=== PATIENT | female | born 1995 | race African-American/Black ===

== ENCOUNTER 2024-12-30 14:41 | Inpatient (IN) | payer MEDICAID, OTHER, SELFPAY ==
[2024-12-30 15:20] VITALS: BMI 29.9
[2024-12-30] MEDS ORDERED: Bicitra 30 ML UDCUP PO PRN (15:59)
[2024-12-30] MEDS ORDERED: Carboprost 250 MCG/ML AMP IM PRN (16:15)
[2024-12-30] MEDS ORDERED: Diphenoxylate HCl/Atropine Tablet PO PRN ×2 (16:15)
[2024-12-30] MEDS ORDERED: Tranexamic Acid 1,000 MG/10 ML VIAL IVP PRN (16:15)
[2024-12-30] MEDS ORDERED: Oxytocin 30 units/NS 500 ML 500 ML IV SCH (16:15)
[2024-12-30] MEDS ORDERED: Ondansetron PF 4 MG/2 ML Vial IVP PRN ×2 (16:15→18:27)
[2024-12-30] MEDS: Famotidine/PF 20 mg/2ml Vial SLOW IVP PRN (16:34)
[2024-12-30 16:47] LABS: #Basophils Less than 0.03 10x3/uL (0.0-0.2); #Eosinophils 0.03 10x3/uL (0.0-0.5); #Monocytes 0.58 10x3/uL (0.0-1.1); #Neutrophils 3.44 10x3/uL (1.5-8.4); %Basophils 0.2 % (0.0-2.0); %Eosinophils 0.5 % (0.0-6.0); %Lymphocytes 34.8 % (18.0-47.0); %Monocytes 9.3 % (0.0-10.0); %Neutrophils 54.9 % (40.0-75.0); Hematocrit 34.3 % (34.9-44.5); Hemoglobin 11.1 g/dL (12.0-15.5); Mean Corpuscular Hemoglobin 25.8 pg (27.0-33.0); Mean Corpuscular Volume 79.6 fL (81.6-98.3); Platelet Count 276 10x3/uL (150-450); Red Blood Cell (RBC) Count 4.31 10x6/uL (3.90-5.03); White Blood Cell (WBC) Count 6.26 10x3/uL (3.5-10.5)
[2024-12-30 16:52] LABS: ALT (SGPT) 19 U/L (Less than 34); AST (SGOT) 44 U/L (11-34); Albumin 3.3 g/dL (3.1-4.5); Alkaline Phosphatase 112 U/L (40-110); Anion Gap 15 mmol/L (10-20); BUN (Urea Nitrogen) 8 mg/dL (7.0-18.7); Bilirubin, Total 0.2 mg/dL (0.3-1.2); Calc. Creatinine Clearance 166 mL/min (70-130); Calcium 9.5 mg/dL (7.8-10.44); Carbon Dioxide 20 mmol/L (22-29); Chloride 104 mmol/L (98-107); Globulin 3.8 g/dL (2.4-3.5); Glucose 242 mg/dL (70-105); Potassium 4.9 mmol/L (3.5-5.1); Sodium 134 mmol/L (136-145)
[2024-12-30 17:11] LABS: Syphilis Antibody Index 0.07 S/CO (<1.00 Non-Reactive)
[2024-12-30 17:13] LABS: Hep B Surf Ag - L&D Non-Reactive S/CO (NonReactive)
[2024-12-30 17:16] LABS: Protein, Urine Random Quant Less than 10 mg/dL (1-14)
[2024-12-30] MEDS ORDERED: Bisacodyl 10 MG SUPP PR PRN (17:35)
[2024-12-30] MEDS ORDERED: diphenhydrAMINE 25 MG CAP PO PRN (17:35)
[2024-12-30] MEDS ORDERED: HYDROcodone/Acetaminophen 5/325 mg Tablet PO PRN (17:35)
[2024-12-30] MEDS ORDERED: hydrALAZINE 20 MG/ML VIAL SLOW IVP PRN (17:35)
[2024-12-30] MEDS ORDERED: Simethicone Chewable 80 MG TAB PO PRN (17:35)
[2024-12-30] MEDS ORDERED: Lanolin Ointment 7 GM TUBE TOP PRN (17:35)
[2024-12-30 17:45] LABS: Analyzer IN Cardio CS NICU; Critical Notified By: Udy, RRT; Critical Notified Whom: NUR.SM17; RapidComm Collect By NUR.SM17
[2024-12-30 17:46] LABS: Analyzer IN Cardio CS NICU; Critical Notified Whom: NUR.SM17; RapidComm Collect By NUR.SM17; pH (Cord, venous) 7.367 (7.250-7.350)
[2024-12-30] MEDS ORDERED: Meperidine HCl/PF 25 MG (1 mL) VIAL SLOW IVP PRN (18:27)
[2024-12-30] MEDS ORDERED: diphenhydrAMINE 50 MG/ML VIAL IVP PRN (18:27)
[2024-12-30] MEDS ORDERED: Communication Order-Pharmacy FS SCH (18:30)
[2024-12-30] MEDS ORDERED: Calcium Gluc 4.6 MEQ/10 ML (100 MG/ML) SLOW IVP PRN (18:41)
[2024-12-30] MEDS: hydrALAZINE 20 MG/ML VIAL SLOW IVP PRN ×2 (19:05→21:33)
[2024-12-30 19:11] LABS: #Basophils Less than 0.03 10x3/uL (0.0-0.2); #Eosinophils 0.03 10x3/uL (0.0-0.5); #Monocytes 0.23 10x3/uL (0.0-1.1); #Neutrophils 5.51 10x3/uL (1.5-8.4); %Basophils 0.1 % (0.0-2.0); %Eosinophils 0.4 % (0.0-6.0); %Lymphocytes 24.2 % (18.0-47.0); %Monocytes 3.0 % (0.0-10.0); %Neutrophils 71.9 % (40.0-75.0); Hematocrit 35.7 % (34.9-44.5); Hemoglobin 11.6 g/dL (12.0-15.5); Mean Corpuscular Hemoglobin 25.5 pg (27.0-33.0); Mean Corpuscular Volume 78.5 fL (81.6-98.3); Platelet Count 267 10x3/uL (150-450); Red Blood Cell (RBC) Count 4.55 10x6/uL (3.90-5.03); White Blood Cell (WBC) Count 7.66 10x3/uL (3.5-10.5)
[2024-12-30 19:44] LABS: ALT (SGPT) 19 U/L (Less than 34); AST (SGOT) 32 U/L (11-34); Albumin 3.2 g/dL (3.1-4.5); Alkaline Phosphatase 116 U/L (40-110); Anion Gap 14 mmol/L (10-20); BUN (Urea Nitrogen) 6 mg/dL (7.0-18.7); Bilirubin, Total 0.2 mg/dL (0.3-1.2); Calc. Creatinine Clearance 169 mL/min (70-130); Calcium 9.6 mg/dL (7.8-10.44); Carbon Dioxide 20 mmol/L (22-29); Chloride 105 mmol/L (98-107); Globulin 4.0 g/dL (2.4-3.5); Glucose 169 mg/dL (70-105); Potassium 4.5 mmol/L (3.5-5.1); Sodium 134 mmol/L (136-145)
[2024-12-30] MEDS: Ketorolac Tromethamine 30 MG (1 mL) VIAL IVP SCH (19:45)
[2024-12-30] MEDS: Ondansetron PF 4 MG/2 ML Vial IVP PRN (19:46)
[2024-12-30] MEDS ORDERED: Ibuprofen 800 MG TAB PO SCH (22:00)
[2024-12-31 05:53] LABS: Hematocrit 31.3 % (34.9-44.5); Hemoglobin 10.4 g/dL (12.0-15.5); Mean Corpuscular Hemoglobin 25.9 pg (27.0-33.0); Mean Corpuscular Volume 77.9 fL (81.6-98.3); Platelet Count 246 10x3/uL (150-450); Red Blood Cell (RBC) Count 4.02 10x6/uL (3.90-5.03); White Blood Cell (WBC) Count 13.53 10x3/uL (3.5-10.5)
[2024-12-31] MEDS: Ferrous Sulfate 325 MG TAB PO SCH (09:05)
[2024-12-31] MEDS: Magnesium Sulfate 20 gm/500 ml 20 GM/500 ML BAG IVPB SCH (14:35)
[2024-12-31] MEDS: Ketorolac Tromethamine 30 MG (1 mL) VIAL IVP PRN (15:55)
[2024-12-31] MEDS: Oxytocin 10 UNITS/ML VIAL ONE (19:22)
[2024-12-31] MEDS: Dexamethasone 10 MG/ML VIAL ONE (19:22)
[2024-12-31] MEDS: Magnesium Sulfate 20 gm/500 ml 20 GM/500 ML BAG ONE (19:22)
[2024-12-31] MEDS: PHENYLEPHRINE-NS 100 MCG/ML 10 ML SYRINGE ONE (19:22)
[2024-12-31] MEDS: Ondansetron PF 4 MG/2 ML Vial ONE (19:22)
[2024-12-31] MEDS ORDERED: Ondansetron PF 4 MG/2 ML Vial IVP PRN (21:12)
[2024-12-31] MEDS ORDERED: diphenhydrAMINE 25 MG CAP PO PRN (21:12)
[2024-12-31] MEDS: HYDROcodone/Acetaminophen 5/325 mg Tablet PO SCH (21:29)
[2024-12-31] MEDS ORDERED: Dextrose 50% Abboject 50 ML SYRINGE SLOW IVP PRN (21:35)
[2024-12-31] MEDS ORDERED: Glucagon 1 MG/ML KIT IM PRN (21:35)
[2024-12-31] MEDS: Lantus 1000 UNITS/10 ML VIAL SC SCH (22:47)
[2024-12-31] MEDS: Ibuprofen 800 MG TAB PO SCH (22:47)
[2025-01-01] MEDS: Acetaminophen 325 MG TAB PO PRN (03:46)
[2025-01-01 07:14] LABS: #Basophils Less than 0.03 10x3/uL (0.0-0.2); #Eosinophils 0.12 10x3/uL (0.0-0.5); #Monocytes 0.79 10x3/uL (0.0-1.1); #Neutrophils 5.55 10x3/uL (1.5-8.4); %Basophils 0.1 % (0.0-2.0); %Eosinophils 1.3 % (0.0-6.0); %Lymphocytes 31.6 % (18.0-47.0); %Monocytes 8.3 % (0.0-10.0); %Neutrophils 58.4 % (40.0-75.0); Hematocrit 27.2 % (34.9-44.5); Hemoglobin 9.0 g/dL (12.0-15.5); Mean Corpuscular Hemoglobin 26.0 pg (27.0-33.0); Mean Corpuscular Volume 78.6 fL (81.6-98.3); Platelet Count 213 10x3/uL (150-450); Red Blood Cell (RBC) Count 3.46 10x6/uL (3.90-5.03); White Blood Cell (WBC) Count 9.50 10x3/uL (3.5-10.5)
[2025-01-01] MEDS ORDERED: Ferrous Sulfate 325 MG TAB PO SCH (09:00)
[2025-01-01] MEDS: Lantus 1000 UNITS/10 ML VIAL SC SCH ×2 (09:53→21:20)
[2025-01-01] MEDS: Simethicone Chewable 80 MG TAB PO PRN (13:42)
[2025-01-01] MEDS ORDERED: Lantus 1000 UNITS/10 ML VIAL SC SCH (21:00)
[2025-01-01] MEDS: HYDROcodone/Acetaminophen 5/325 mg Tablet PO PRN (21:04)
[2025-01-02] MEDS: HYDROcodone/Acetaminophen 5/325 mg Tablet PO PRN (01:28)
[2025-01-02] MEDS: hydrALAZINE 20 MG/ML VIAL SLOW IVP PRN (08:06)
[2025-01-02] MEDS ORDERED: hydrALAZINE 20 MG/ML VIAL SLOW IVP PRN (08:43)
[2025-01-02] MEDS: hydrALAZINE 20 MG/ML VIAL ONE (09:12)
[2025-01-02] MEDS: Lantus 1000 UNITS/10 ML VIAL SC SCH ×2 (09:20→21:21)
[2025-01-02] MEDS: NIFEdipine XL 60 MG ER.TAB PO SCH (16:48)
[2025-01-03] MEDS: Boostrix 0.5 ML (Tdap) VIAL (>/=7 yrs of age) IM ONE (07:28)
[2025-01-03] MEDS: NIFEdipine XL 60 MG ER.TAB PO SCH (08:11)
[2025-01-03] MEDS: NIFEdipine XL 30 MG ER.TAB PO SCH (11:09)
[2025-01-03 14:16] LABS: ALT (SGPT) 70 U/L (Less than 34); AST (SGOT) 93 U/L (11-34); Albumin 3.1 g/dL (3.1-4.5); Alkaline Phosphatase 94 U/L (40-110); Anion Gap 12 mmol/L (10-20); BUN (Urea Nitrogen) 16 mg/dL (7.0-18.7); Bilirubin, Total 0.3 mg/dL (0.3-1.2); Calc. Creatinine Clearance 188 mL/min (70-130); Calcium 10.5 mg/dL (7.8-10.44); Carbon Dioxide 23 mmol/L (22-29); Chloride 103 mmol/L (98-107); Globulin 4.0 g/dL (2.4-3.5); Glucose 185 mg/dL (70-105); Potassium 4.3 mmol/L (3.5-5.1); Sodium 134 mmol/L (136-145)
[2025-01-03] MEDS: metFORMIN 500 MG TAB PO SCH (17:19)
[2025-01-03] MEDS: HYDROcodone/Acetaminophen 5/325 mg Tablet PO PRN (20:11)
[2025-01-04 05:12] LABS: #Basophils 0.03 10x3/uL (0.0-0.2); #Eosinophils 0.25 10x3/uL (0.0-0.5); #Monocytes 0.69 10x3/uL (0.0-1.1); #Neutrophils 2.43 10x3/uL (1.5-8.4); %Basophils 0.5 % (0.0-2.0); %Eosinophils 4.1 % (0.0-6.0); %Lymphocytes 44.2 % (18.0-47.0); %Monocytes 11.3 % (0.0-10.0); %Neutrophils 39.7 % (40.0-75.0); Hematocrit 33.2 % (34.9-44.5); Hemoglobin 11.1 g/dL (12.0-15.5); Mean Corpuscular Hemoglobin 26.3 pg (27.0-33.0); Mean Corpuscular Volume 78.7 fL (81.6-98.3); Platelet Count 327 10x3/uL (150-450); Red Blood Cell (RBC) Count 4.22 10x6/uL (3.90-5.03); White Blood Cell (WBC) Count 6.11 10x3/uL (3.5-10.5)
[2025-01-04 05:28] LABS: ALT (SGPT) 63 U/L (Less than 34); AST (SGOT) 65 U/L (11-34); Albumin 3.3 g/dL (3.1-4.5); Alkaline Phosphatase 91 U/L (40-110); Anion Gap 13 mmol/L (10-20); BUN (Urea Nitrogen) 20 mg/dL (7.0-18.7); Bilirubin, Total 0.3 mg/dL (0.3-1.2); Calc. Creatinine Clearance 175 mL/min (70-130); Calcium 10.9 mg/dL (7.8-10.44); Carbon Dioxide 23 mmol/L (22-29); Chloride 105 mmol/L (98-107); Globulin 4.1 g/dL (2.4-3.5); Glucose 100 mg/dL (70-105); Potassium 3.8 mmol/L (3.5-5.1); Sodium 137 mmol/L (136-145)
[2025-01-04] MEDS: metFORMIN 500 MG TAB PO SCH ×2 (07:39→16:54)
[2025-01-04] MEDS: NIFEdipine XL 60 MG ER.TAB PO SCH (07:39)
[2025-01-04] MEDS ORDERED: NIFEdipine XL 90 MG ER.TAB PO SCH (09:00)
[2025-01-04] MEDS ORDERED: HYDROcodone/Acetaminophen 5/325 mg Tablet PO PRN (20:44)
[2025-01-04] MEDS ORDERED: HYDROcodone/Acetaminophen 5/325 mg Tablet PO SCH (20:45)
[2025-01-04] MEDS: HYDROcodone/Acetaminophen 5/325 mg Tablet PO PRN (21:12)
[2025-01-05 07:41] VITALS: BP 132/82; TEMP 98.2
== END 2025-01-05 10:40 | disposition home or self-care (01) | DRG 787 ==
LOC: CSHLD/OP 14:41 → CSHLD 16:16 → UNDOADMIN 16:16 → CSHLD 22:58 → CSHPP 12-31 20:10
PROVIDERS: ADMIT Family Medicine; ATTEND Family Medicine
PROC: 3E03329 Introduction of Other Anti-infective into Peripheral Vein, Percutaneous Approach (ICD-10-PCS; principal; 2024-12-30)
PROC: 4A1HXCZ Monitoring of Products of Conception, Cardiac Rate, External Approach (ICD-10-PCS; principal; 2024-12-30)
PROC: 10D00Z1 Extraction of Products of Conception, Low, Open Approach (ICD-10-PCS; principal; 2024-12-30)
DX: O11.4 Pre-existing hypertension with pre-eclampsia, complicating childbirth (principal); O41.03X0 Oligohydramnios, third trimester, not applicable or unspecified; S37.898A Other injury of other urinary and pelvic organ, initial encounter; O99.892 Other specified diseases and conditions complicating childbirth; O24.425 Gestational diabetes mellitus in childbirth, controlled by oral hypoglycemic drugs; O32.1XX0 Maternal care for breech presentation, not applicable or unspecified; O35.8XX0 Maternal care for other (suspected) fetal abnormality and damage, not applicable or unspecified; O34.211 Maternal care for low transverse scar from previous cesarean delivery; O34.83 Maternal care for other abnormalities of pelvic organs, third trimester; N83.8 Other noninflammatory disorders of ovary, fallopian tube and broad ligament; R01.1 Cardiac murmur, unspecified; O69.82X0 Labor and delivery complicated by other cord entanglement, without compression, not applicable or unspecified; Z3A.35 35 weeks gestation of pregnancy; Z37.0 Single live birth; Z79.899 Other long term (current) drug therapy; Z79.4 Long term (current) use of insulin
CPT/HCPCS: 36415; 36416; 51702; 76819; 80053; 82570; 82805; 82947; 84156; 85025; 85027; 86780; 86850; 86900; 86901; 87340; 99285; J0360; J1100; J1308; J1815; J1885; J2274; J2405; J2550; J2590; J3010; J3475